=== PATIENT | male | born 1965 | race African-American/Black ===

== ENCOUNTER 2019-01-29 23:53 | Inpatient (IN) | payer OTHER ==
[~2019-01-29] VITALS: Ht 177.8 cm; Wt 112.5 kg
[2019-01-29 23:53] VITALS: BP 151/96
--- NOTE | 2019-01-29 23:53 | NUR ---
PT BROUGHT IN ALS TO ER BED 07.
--- NOTE | 2019-01-29 23:55 | NUR ---
BIBA from home with c/o mid abdominal pain x2 days, last bowel movement x2 days ago with distented abd and decrese in urine output. Denies dialysis. c/o SOB, uses home oxygen 3L at home. HX: COPD, DM, HTN, CHF, renal failure PT DENIES N/V/D; SKIN IS PINK/WARM/DRY; AAOX4 WITH EVEN AND STEADY GAIT; LUNGS CLEAR BL; PATIENT STATES PAIN OF 10/10 AT THIS TIME; PATIENT POSITIONED FOR COMFORT; HOB ELEVATED; BEDRAILS UP X2; BED DOWN. ER MD MADE AWARE OF PT STATUS.
[2019-01-30] MEDS ORDERED: ONDANSETRON 4 MG/2 ML VIAL IVP ONE (00:30)
[2019-01-30] MEDS ORDERED: MORPHINE SULFATE 4 MG/ML SYR IVP ONE ×2 (00:30→02:25)
--- NOTE | 2019-01-30 00:30 | NUR ---
PT'S GIRLFRIEND AT BEDSIDE
[2019-01-30 00:44] LABS: APPEARANCE,URINE CLEAR (CLEAR); BILIRUBIN,URINE NEGATIVE (NEGATIVE); BLOOD, URINE 1+ (NEGATIVE); COLOR,URINE YELLOW (YELLOW); LEUKOCYTE ESTERASE ,URINE NEGATIVE (NEGATIVE); NITRITE, URINE NEGATIVE (NEGATIVE); PH,URINE 6.5 (5.0-9.0); UGLUCOSE NEGATIVE (NEGATIVE)
[2019-01-30 00:50] LABS: BASOPHILS % (AUTO) 0.7 % (0.0-2.0); EOSINOPHILS # (AUTO) 0.2 K/uL (0-0.4); EOSINOPHILS % (AUTO) 3.1 % (0.0-4.0); HEMATOCRIT 41.4 % (36-52); HEMOGLOBIN 13.4 g/dL (12.0-18.0); LYMPHOCYTES # (AUTO) 0.6 K/uL (2.0-11.5); LYMPHOCYTES % (AUTO) 10.2 % (20.5-51.1); MEAN CORPUSCULAR HEMOGLOBIN 31 pg (27-31); MEAN CORPUSCULAR HGB CONC 32 g/dL (33-37); MEAN CORPUSCULAR VOLUME 94.3 fL (80-94); MONOCYTES # (AUTO) 0.9 K/uL (0.8-1.0); MONOCYTES % (AUTO) 15.4 % (1.7-9.3); NEUTROPHILS # (AUTO) 4.3 K/uL (1.8-7.7); NEUTROPHILS % (AUTO) 70.6 % (42.2-75.2); PLATELET COUNT (AUTO) 239 K/uL (140-450); RED CELL DISTRIBUTION WIDTH 15.2 % (11.6-13.7); WHITE BLOOD COUNT (AUTO) 6.1 K/uL (4.8-10.8)
--- NOTE | 2019-01-30 00:58 | NUR ---
PT TAKEN TO CT
[2019-01-30 01:01] LABS: ANION GAP 7.9 (8-16); CARBON DIOXIDE 34.4 mmol/L (21-32); CREATININE 1.6 mg/dL (0.7-1.3); POTASSIUM 3.3 mmol/L (3.5-5.1)
[2019-01-30 01:03] LABS: BARBITURATE, URINE NEG. ng/ml (NEG <=200); BENZODIAZEPINE, URINE NEG. ng/mL (NEG <=200); CANNABINOID, URINE NEG. ng/mL (NEG <=50); COCAINE, URINE NEG. ng/mL (NEG <=300); OPIATE, URINE NEG. ng/mL (NEG <=2000); PHENCYCLIDINE SCREEN,URINE NEG. ng/mL (NEG <=25)
[2019-01-30 01:06] LABS: WBC,URINE 0-5 /HPF (0-5)
[2019-01-30 01:07] LABS: TOTAL BILIRUBIN 0.6 mg/dL (0.0-1.0)
--- NOTE | 2019-01-30 01:18 | NUR ---
PT BACK FROM CT
--- NOTE | 2019-01-30 01:32 | NUR ---
PT LAYING IN BED SEMIFOWLER'S, PT'S GIRLFRIEND AT BEDSIDE. VS NOTED, SPO2 98% ON 3L O2 NC, RR 26 EVEN AND UNLABORED, ALL NEEDS MET AT THIS TIME.
[2019-01-30] MEDS ORDERED: NACL 0.9% 1,000 ML IV ONE (02:15)
--- NOTE | 2019-01-30 02:20 | NUR ---
DR GOMEZ AT BEDSIDE
[2019-01-30] MEDS ORDERED: ONDANSETRON 4 MG/2 ML VIAL IVP PRN (02:25)
[2019-01-30] MEDS ORDERED: ZOLPIDEM 5 MG TAB PO PRN (02:25)
[2019-01-30] MEDS ORDERED: APIX5TAB PO (02:26)
[2019-01-30] MEDS ORDERED: FURO-570 PO (02:26)
[2019-01-30] MEDS ORDERED: AMLO5TAB PO (02:26)
[2019-01-30] MEDS ORDERED: FERR325E14 PO (02:26)
[2019-01-30] MEDS ORDERED: MONT10TA35 PO (02:26)
[2019-01-30] MEDS ORDERED: FOLI1TAB90 PO (02:26)
[2019-01-30] MEDS ORDERED: ALBU0.0912 IH (02:26)
[2019-01-30] MEDS ORDERED: INSU100S22 SC (02:26)
[2019-01-30] MEDS ORDERED: METO25TA PO (02:26)
[2019-01-30] MEDS ORDERED: PANT40EC PO (02:26)
--- NOTE | 2019-01-30 02:40 | NUR ---
Patient will be admitted to care of DR. ELIZABETH. Admited to TELE. Will go to room 111B. Belongings list completed. Report to ALEX SANDERS AT BEDSIDE.
--- NOTE | 2019-01-30 02:45 | NUR ---
ADMITTED A 53 Y/O MALE WITH FROM [place] WITH CHIEF COMPLAINT OF ABDOMINAL PAIN VIA GURNEY. PATIENT ABLE TO TRANSFERRED TO BED STAND BY ASSIST.RESPIRATION EVEN AND UNLABORED. SKIN INTACT. NASAL SWAB DONE. EXPLAINED PLAN OF CARE. PERSONAL BELONGINGS AT BEDSIDE. ROUTINE ADMISSION CARE DONE AND CARRY OUT ORDERS. BED IN LOW LOCKED POSITION. CALL LIGHT WITHIN REACH. ALL NEEDS ATTENDED.
[2019-01-30] MEDS: DEXT 5% / NACL 0.45% 1,000 ML IV SCH ×2 (03:14→17:09)
[2019-01-30 03:22] LABS: CHOL/HDL RATIO 2.1 (1-4.5); THYROID STIMULATING HORMONE 1.49 uIU/mL (0.34-3.74)
[2019-01-30 04:00] VITALS: BP 127/72
--- NOTE | 2019-01-30 04:00 | NUR ---
SEEN PATIENT RESTING ON BED. DENIES PAIN AT THIS TIME. NO S/S OF DISTRESS NOTED. WILL CONTINUE TO MONITOR.
--- NOTE | 2019-01-30 04:30 | NUR ---
SEEN PATIENT RESTING. NO S/S OF DISTRESS NOTED. BED IN LOW LOCKED POSITION. WILL CONTINUE TO MONITOR.
[2019-01-30] MEDS ORDERED: POTASSIUM CHLORIDE 20 MEQ, LIDOCAINE MPF 1% - 5 mL VIAL 25 MG in NACL 0.9% 250 ML IV SCH ×2 (06:15→09:00)
[2019-01-30] MEDS: MORPHINE SULFATE 4 MG/ML SYR IVP PRN ×3 (06:38→18:51)
--- NOTE | 2019-01-30 07:15 | NUR ---
GAVE REPORT TO AM SHIFT RN AT BEDSIDE. CALL LIGHT WITHIN REACH. PATIENT IN STABLE CONDITION.
--- NOTE | 2019-01-30 07:16 | NUR ---
RECEIVED BEDSIDE REPORT FROM HEALTH AND SOCIAL CARE TEACHER NURSE. PATIENT IS AWAKE, ALERT AND ORIENTEDX4. NO SIGNS OF DISTRESS ON 2 1/2L NC. SKIN IS INTACT. IV ON L AC 20G INFUSING D5 1/2NS AT 80. CLEAN, DRY AND INTACT. PATIENT IS AMBULATORY, CONTINENT. URINAL AT BEDSIDE. WEB APPLICATIONS ARCHITECT AT BEDSIDE. PATIENT NPO D/T DX ACUTE PANCREATITIS. NO COMPLAINTS AT THIS TIME. BED IN LOW POSITION. CALL LIGHT WITHIN REACH. PATIENT ABLE TO MAKE NEEDS KNOWN. WILL CONTINUE TO MONITOR
[2019-01-30 08:00] VITALS: BP 112/76
--- NOTE | 2019-01-30 08:09 | NUR ---
PATIENT HAS BEEN SCREENED AND CATEGORIZED HIGH NUTRITION RISK. PATIENT WILL BE SEEN WITHIN 1-2 DAYS OF ADMISSION. 01/30/19-01/31/[address]
--- NOTE | 2019-01-30 09:00 | NUR ---
PATIENT IS WATCHING TV. NO SIGNS OF DISTRESS. WILL CONTINUE TO MONITOR THE PATIENT. CALL LIGHT WITHIN REACH
--- NOTE | 2019-01-30 10:13 | NUR ---
ADMINISTERED MEDS. PATIENT EDUCATED ON SIDE EFFECTS. PATIENT TOLERATED WELL. NO SIGNS OF DISTRESS ON 2 NC. PATIENT WATCHING TV. CALL LIGHT WITHIN REACH. PATIENT ABLE TO MAKE NEEDS KNOWN
[2019-01-30] MEDS ORDERED: LORazepam 2 MG/ML VIAL IVP PRN (11:20)
--- NOTE | 2019-01-30 11:32 | NUR ---
DR ELIZABETH SAID OK TO GIVE ICE CHIPS, ICE CHIPS GIVEN. PATIENT PLACED ON SEIZURE PRECAUTIONS D/T HX OF HEAVY DRINKING
[2019-01-30 11:41] LABS: BASOPHILS # (AUTO) 0.1 K/uL (0.00-0.22); BASOPHILS % (AUTO) 1.1 % (0.0-2.0); EOSINOPHILS # (AUTO) 0.2 K/uL (0-0.4); EOSINOPHILS % (AUTO) 3.7 % (0.0-4.0); HEMATOCRIT 40.4 % (36-52); LYMPHOCYTES # (AUTO) 0.7 K/uL (2.0-11.5); LYMPHOCYTES % (AUTO) 13.8 % (20.5-51.1); MEAN CORPUSCULAR HEMOGLOBIN 31 pg (27-31); MEAN CORPUSCULAR HGB CONC 32 g/dL (33-37); MEAN CORPUSCULAR VOLUME 94.8 fL (80-94); MONOCYTES # (AUTO) 0.9 K/uL (0.8-1.0); NEUTROPHILS # (AUTO) 3.2 K/uL (1.8-7.7); NEUTROPHILS % (AUTO) 63.4 % (42.2-75.2); PLATELET COUNT (AUTO) 228 K/uL (140-450); RED BLOOD CELL COUNT(AUTO) 4.26 MIL/uL (4.20-6.10); RED CELL DISTRIBUTION WIDTH 15.6 % (11.6-13.7); WHITE BLOOD COUNT (AUTO) 5.1 K/uL (4.8-10.8)
[2019-01-30 11:45] LABS: ANION GAP 8.4 (8-16); CARBON DIOXIDE 33.5 mmol/L (21-32); CREATININE 1.7 mg/dL (0.7-1.3); POTASSIUM 3.9 mmol/L (3.5-5.1)
[2019-01-30 11:51] LABS: ALBUMIN 2.7 g/dL (3.4-5.0); TOTAL BILIRUBIN 0.6 mg/dL (0.0-1.0)
[2019-01-30 12:00] VITALS: BP 123/80
--- NOTE | 2019-01-30 12:08 | NUR ---
ULTRASOUND TECHS AT BEDSIDE DOING US GALLBLADDER AND BLE.
--- NOTE | 2019-01-30 13:26 | NUR ---
01/30/19 RD INITIAL ASSESSMENT COMPLETED PLEASE REFER TO NUTRITION ASSESSMENT UNDER CARE ACTIVITY FOR ESTIMATED NUTRITIONAL NEEDS. 1. RECOMMEND RENAL DIET WHEN PATIENT IS MEDICALLY STABLE 2. EDUCATION ON HEALTHY EATING WAS PROVIDED 3. RD TO FOLLOW-UP 3-5 DAYS, MODERATE RISK RAÚL VELASCO, RD
--- NOTE | 2019-01-30 13:35 | NUR ---
PATIENT RESTING IN BED. NO DISTRESS. WILL CONTINUE TO MONITOR THE PATIENT
--- NOTE | 2019-01-30 13:55 | NUR ---
CM NOTE I SPOKE WITH SIVA OF [facility] # [phone] TO SET UP PATIENT'S OUTPATIENT FOLLOW UP APPOINTMENT. I INFORMED SIVA THAT THIS IS AN OUTPATIENT FOLLOW UP AFTER A HOSPITAL ADMISSION. PER SIVA, THE EARLIEST SCHEDULE FOR OUTPATIENT FOLLOW UP EVEN AFTER A HOSPITAL ADMISSION IS WITH DR. BERNA ENRIQUEZ (FROM THE SAME GROUP OF DOCTORS DR. SAHARA KHALIL) ON FEBRUARY 13, 2019 4:15 PM AT THE CLINIC AT [address] [place], [place] [id number]. I GAVE THE PATIENT HIS OUTPATIENT FOLLOW UP SCHEDULE.
--- NOTE | 2019-01-30 14:34 | NUR ---
PATIENT ASKING FOR A NAIL CLIPPER. TOLD HIM WE DONT HAVE ANY. PATIENT RELAXING IN BED. NO SIGNS OF DISTRESS. WILL CONTINUE TO MONITOR THE PATIENT. PATIENT ABLE TO VERBALIZE NEEDS
[2019-01-30 16:00] VITALS: BP 122/75
--- NOTE | 2019-01-30 16:00 | NUR ---
PATIENT RESTING. NO SIGNS OF DISTRESS. WILL CONTINUE TO MONITOR
--- NOTE | 2019-01-30 17:09 | NUR ---
PATIENT ASKING FOR URINAL. HANDED PATIENT URINAL. NO SIGNS OF DISTRESS. WILL CONTINUE TO MONITOR THE PATIENT
--- NOTE | 2019-01-30 18:55 | NUR ---
ADMINISTERED PRN PAIN MED. PATIENT EDUCATED ON SIDE EFFECTS. TOLERATED WELL. WILL CONTINUE TO MONITOR THE PATIENT
--- NOTE | 2019-01-30 19:31 | NUR ---
GAVE BEDSIDE REPORT TO SECTIONAL BELT MOLD ASSEMBLER NURSE. PATIENT ENDORSED IN STABLE CONDITION
--- NOTE | 2019-01-30 19:32 | NUR ---
RECEIVED PT FROM BLAIR RN KPT IS AAOX4 AMBULATORY IV ON LEFT AC INFUSING WELL DENIES ANY PAIN AT THIS TIME ON ICE CHIPS WELL TOLERATED INITIAL ASSESSMENT DONE
[2019-01-30 20:00] VITALS: BP 109/69
[2019-01-30] MEDS: METOPROLOL 25 MG TAB PO SCH (21:21)
--- NOTE | 2019-01-30 21:30 | NUR ---
PT VOIDING WELL NOT DISTRESS NOTED GETTING SLEEP ON 12 09 LTS VIA NC
[2019-01-31] VITALS: BP 113/76
--- NOTE | 2019-01-31 | NUR ---
PT REMAIN STABLE SLEEPING WELL NOT SIGNS OF PAIN NOTED
--- NOTE | 2019-01-31 01:15 | NUR ---
PT VOIDING WELL IV ;ON LEFT AC INFUSING WELL DENIES ANY PLAIN
[2019-01-31] MEDS: MORPHINE SULFATE 4 MG/ML SYR IVP PRN ×2 (02:05→08:15)
[2019-01-31] MEDS: DEXT 5% / NACL 0.45% 1,000 ML IV SCH (02:08)
--- NOTE | 2019-01-31 04:00 | NUR ---
SPONGE BATH GIVEN PT REMAIN STABLE DENIES ANY PAIN AT THIS TIME
[2019-01-31 06:00] VITALS: BP 123/75
--- NOTE | 2019-01-31 06:30 | NUR ---
PT VOIDING WELL DENIES ANY PAIN AT THIS TIME IV ON LEFT AC INFUSING WELL DENIES ANY PAIN AT THIS TIME PT WILL BE ENDORSED TO DAY SHIFT NURSE FOR CONTINUITY OF CARE
[2019-01-31 07:20] LABS: ALBUMIN 2.5 g/dL (3.4-5.0); ANION GAP 8.9 (8-16); CREATININE 1.6 mg/dL (0.7-1.3); POTASSIUM 3.9 mmol/L (3.5-5.1); TOTAL BILIRUBIN 0.5 mg/dL (0.0-1.0)
[2019-01-31 07:21] LABS: BASOPHILS # (AUTO) 0.1 K/uL (0.00-0.22); BASOPHILS % (AUTO) 1.2 % (0.0-2.0); EOSINOPHILS # (AUTO) 0.2 K/uL (0-0.4); EOSINOPHILS % (AUTO) 3.7 % (0.0-4.0); HEMATOCRIT 38.5 % (36-52); HEMOGLOBIN 12.6 g/dL (12.0-18.0); LYMPHOCYTES # (AUTO) 0.5 K/uL (2.0-11.5); LYMPHOCYTES % (AUTO) 10.9 % (20.5-51.1); MEAN CORPUSCULAR HEMOGLOBIN 32 pg (27-31); MEAN CORPUSCULAR HGB CONC 33 g/dL (33-37); MEAN CORPUSCULAR VOLUME 96.2 fL (80-94); MONOCYTES # (AUTO) 0.8 K/uL (0.8-1.0); MONOCYTES % (AUTO) 16.2 % (1.7-9.3); NEUTROPHILS # (AUTO) 3.3 K/uL (1.8-7.7); PLATELET COUNT (AUTO) 239 K/uL (140-450); RED CELL DISTRIBUTION WIDTH 15.2 % (11.6-13.7); WHITE BLOOD COUNT (AUTO) 4.8 K/uL (4.8-10.8)
--- NOTE | 2019-01-31 07:30 | NUR ---
RECEIVED BEDSIDE REPORT FROM PHARMACOLOGY ASSOCIATE NURSE. PT IS SLEEPING, ROUSED BY NAME, OX4. NO SIGNS OF DISTRESS ON 2.5 L NC. SKIN IS INTACT. IV CATH ON L AC 20G INFUSING D5 1/2NS AT 80ML/HR, IV SITE CLEAN, DRY AND INTACT. PT IS AMBULATORY, CONTINENT. URINAL AT BEDSIDE. BED IN LOWEST POSITION. CALL LIGHT WITHIN REACH. PATIENT ABLE TO MAKE NEEDS KNOWN. WILL CONTINUE TO MONITOR
[2019-01-31 08:00] VITALS: BP 124/79
[2019-01-31] MEDS: METOPROLOL 25 MG TAB PO SCH (08:15)
[2019-01-31] MEDS ORDERED: FOLIC ACID 1 MG TAB PO SCH (09:00)
[2019-01-31] MEDS ORDERED: NON-FORMULARY ITEM (Folic Acid 1 MG) PO SCH (09:00)
--- NOTE | 2019-01-31 11:30 | NUR ---
TURNED O2 TO 2L, PT TOLERATED WELL, O2 SATURATION 97%. HOWEVER, PT STATED HE USES 3L AT HOME. MADE PT AWARE 2L IS ENOUGH. MORE OXYGEN THAN NEEDED COULD BE TOXIC. PT VERBALIZED UNDERSTANDING.
[2019-01-31] MEDS: HYDROcodone/APAP 5/325 MG 1 TAB TAB PO PRN ×2 (12:58→18:23)
--- NOTE | 2019-01-31 13:43 | NUR ---
CM NOTE PER ASAF JOHNSON, THE PATIENT IS REQUESTING FOR TRANSPORTATION GOING HOME FROM [facility]. I CONFIRMED WITH THE PATIENT HIS HOME ADDRESS AND HE ALSO STATED THAT HE HAS O2 AT HOME, PORTABLE AND TANK. FAXED [facility] TRANSPORTATION REQUEST FORM TO [facility] PER SUDHIR OF [facility] TRANSPORTATION DEPT PH# [phone], THE PATIENT WILL BE PICKED UP BY [facility] TO GO HOME, FARM MANAGEMENT ADVISER TIME 1929 TODAY. ASAF JOHNSON AWARE.
--- NOTE | 2019-01-31 14:30 | NUR ---
CALLED [employer], MADE HER AWARE THAT PT REQUEST TRANSPORT VEHICLE. PT STATED HE ALWAYS GETS TRANSPORT VEHICLE TO GET HOME FROM THE HOSP. HE SAID HE HAS OXYGEN TANK AND OXYGEN CONCENTRATOR AT HOME. HE ALSO STATED HIS MOTHER IS WORKING WILL BE HOME BY 8PM.
--- NOTE | 2019-01-31 15:30 | NUR ---
MADE PT AWARE THAT TRANSPORT IS ARRANGED FOR TONIGHT FOR 7:30 PM. PT VERBALIZED UNDERSTANDING.
[2019-01-31] MEDS ORDERED: DIAZ5TAB7 PO (15:47)
[2019-01-31 16:00] VITALS: BP 134/93
--- NOTE | 2019-01-31 16:05 | NUR ---
PT ASKING FOR PAIN MEDS FOR ABD PAIN. MADE PT AWARE THAT DOCTOR DC'D MORPHINE, ONLY [facility] IS AVAILABLE AND IT'S DUE AROUND DINNER TIME. PT SAID HE IS COOL. PT ASKING FOR OXYGEN TANK SO HE CAN WALK TO THE RESTROOM. PROVIDED PT WITH PORTABLE OXYGEN TANK.
--- NOTE | 2019-01-31 16:30 | NUR ---
PT TOLERATED DIET, ADVANCED TO CARDIAC LOW SALT AND LOW FAT DIET. PT DENIES VOMITING. PT ALSO HAD BM TODAY. DENIES DIARRHEA.
--- NOTE | 2019-01-31 18:55 | NUR ---
EDUCATED PT ON DISEASE PROCESS, ABN S/SX, WHEN TO GO TO THE ER, EDUCATED ON THE IMPORTANCE TO FOLLOW UP WITH HIS PCP. EDUCATED ON MEDS AND HIS RX. IV REMOVED, TIP INTACT. PATIENT ALREADY DRESSED HIM SELF AND PACKED HIS BELONGINGS. Addendum: 01/31/19 at 1941 by Júnior Fortune RN RX PROVIDED. PT VERBALIZED UNDERSTANDING TO DISCHARGE INSTRUCTION AND MED TEACHING.
--- NOTE | 2019-01-31 19:20 | NUR ---
PT PICKED UP BY [facility]. O2 IN PLACE. NO S/S OF ACUTE DISTRESS.
--- NOTE | 2019-01-31 19:24 | NUR ---
PATIENT LEFT THE FACILITY IN WHEELCHAIR WITH 1 PERSONNEL FROM [place]. PATIENT CONDITION STABLE AT THIS TIME.
[2019-02-01] MEDS ORDERED: PANTOPRAZOLE 40 MG TABEC PO SCH (06:30)
[2019-02-01] MEDS ORDERED: MONTELUKAST SODIUM 10 MG TAB PO SCH (09:00)
== END 2019-01-31 19:05 | disposition home or self-care (01) | DRG 282 ==
LOC: MED 23:53 → MTU 01-30 02:28
PROVIDERS: ADMIT Hospitalist; ATTEND Hospitalist
DX: K85.20 Alcohol induced acute pancreatitis without necrosis or infection (principal); E11.22 Type 2 diabetes mellitus with diabetic chronic kidney disease; I50.30 Unspecified diastolic (congestive) heart failure; I13.0 Hypertensive heart and chronic kidney disease with heart failure and stage 1 through stage 4 chronic kidney disease, or unspecified chronic kidney disease; N18.3 Chronic kidney disease, stage 3 (moderate); E66.9 Obesity, unspecified; J44.9 Chronic obstructive pulmonary disease, unspecified; E87.6 Hypokalemia; E78.5 Hyperlipidemia, unspecified; Z68.35 Body mass index [BMI] 35.0-35.9, adult; Z86.718 Personal history of other venous thrombosis and embolism; Z79.01 Long term (current) use of anticoagulants; E44.1 Mild protein-calorie malnutrition
CPT/HCPCS: 36415; 71045; 76705; 80053; 80305; 81001; 83036; 83605; 83690; 83880; 84443; 84484; 85025; 86140; 87040; 87081; 87086; 93005; 93970; 99285; J1644; J2001; J2270; J2405; J3480; J7030; Q0092

== ENCOUNTER 2019-07-06 22:32 | Emergency (ER) | payer OTHER ==
[~2019-07-06] VITALS: Ht 177.8 cm; Wt 108.9 kg
[~2019-07-06 22:32] MED LIST: ALBU0.0912 IH; AMLO5TAB PO; APIX5TAB PO; DIAZ5TAB7 PO; FOLI1TAB90 PO; METO25TA PO; MONT10TA35 PO; PANT40EC PO
[2019-07-06 22:36] VITALS: BP 150/89
--- NOTE | 2019-07-06 22:46 | NUR ---
PT TRIAGED, SENT BACK IN LOBBY AWAITING FOR BED AT THIS TIME.
[2019-07-06] MEDS ORDERED: FURO-570 PO (23:46)
[2019-07-06] MEDS ORDERED: BECL10.62 IH (23:51)
[2019-07-07 00:19] LABS: HEMATOCRIT 39.4 % (36-52); HEMOGLOBIN 13.1 g/dL (12.0-18.0); MEAN CORPUSCULAR HEMOGLOBIN 30 pg (27-31); MEAN CORPUSCULAR HGB CONC 33 g/dL (33-37); MEAN CORPUSCULAR VOLUME 89.3 fL (80-94); PLATELET COUNT (AUTO) 355 K/uL (140-450); RED BLOOD CELL COUNT(AUTO) 4.41 MIL/uL (4.20-6.10); RED CELL DISTRIBUTION WIDTH 14.9 % (11.6-13.7); WHITE BLOOD COUNT (AUTO) 10.6 K/uL (4.8-10.8)
[2019-07-07 00:41] LABS: ANION GAP 11.7 (8-16); CREATININE 2.2 mg/dL (0.7-1.3); POTASSIUM 4.7 mmol/L (3.5-5.1)
[2019-07-07 00:53] LABS: TOTAL BILIRUBIN 0.4 mg/dL (0.0-1.0)
[2019-07-07 00:55] LABS: EOSINOPHILS % (MANUAL) 4 % (0-4); LYMPHOCYTES % (MANUAL) 10 % (20-46); MONOCYTES % (MANUAL) 12 % (5-12)
[2019-07-07] MEDS ORDERED: MORPHINE SULFATE 4 MG/ML SYR IVP ONE (00:55)
[2019-07-07] MEDS ORDERED: hydrALAZINE 20 MG/ML VIAL IVP ONE (00:55)
--- NOTE | 2019-07-07 01:00 | NUR ---
PT BIB W/C TO ED BED 12
[2019-07-07] MEDS ORDERED: NACL 0.9% 1,000 ML IV ONE (01:10)
--- NOTE | 2019-07-07 01:15 | NUR ---
PT BIBA TO ED FOR EVALUATION OF PRODUCTIVE COUGH X 3 DAYS. PT AAO X4, GCS 15, ABLE TO SPEAK WITH FULL COMPLETE SENTENCES. ABLET O AMBULATED FROM W/C TO BED. RESPIATIONS TACHYPNIC RR 20'S, BL LUNG CRACKLES. ON O2 3L/M VIA NC, O2 SAT WNL. SKIN WARM AND DRY, COLOR APPROPIATE FOR RACE. ABDOMEN LARGE, NON DISTENDED, ACTIVE BOWEL SOUND X4. CARDIC MONITOR ST HR 100'S, BP WNL. STATED RT CHEST PAIN 06/16. MADE AWARE OF PT STATUS. WILL CONTINUE TO MONITOR
--- NOTE | 2019-07-07 01:30 | NUR ---
CONFIRM NS 1 LITER IVF BOLUS, OK TO GIVE AT THIS TIME.
[2019-07-07] MEDS ORDERED: LEVOFLOXACIN 750 MG TAB PO ONE (02:10)
[2019-07-07] MEDS ORDERED: predniSONE 20 MG TAB PO ONE (02:10)
--- NOTE | 2019-07-07 03:38 | NUR ---
PT REMAINS GCS 15, RESPIRATIONS EVEN AND UNLABORED. VSS, NO ACUTE DISTRESS AT THIS TIME. WILL CONTINUE TO MONITOR. PT PENDING D/C, AWAITING FOR TRANSPORTATION
--- NOTE | 2019-07-07 05:06 | NUR ---
ETA FOR TRANSPORT BACK TO HOME IS 0800. ER MD MADE AWARE OF STATUS. [facility]
--- NOTE | 2019-07-07 06:21 | NUR ---
Patient discharged with v/s stable. Written and verbal after care instructions given and explained. Patient alert, oriented and verbalized understanding of instructions. Ambulance Transport with to home. All questions addressed prior to discharge. ID band removed. Patient advised to follow up with PMD. Rx of LEVAQUIN 750 MG, PRENISONE 20 MG, ALBUTEROL 90 MCG/ACTUATION given. Patient educated on indication of medication including possible reaction and side effects. Opportunity to ask questions provided and answered.
[2019-07-07 06:23] VITALS: BP 136/73
== END 2019-07-07 06:21 | disposition home or self-care (01) ==
LOC: MED 22:32
DX: J44.1 Chronic obstructive pulmonary disease with (acute) exacerbation (principal); E87.1 Hypo-osmolality and hyponatremia; I13.0 Hypertensive heart and chronic kidney disease with heart failure and stage 1 through stage 4 chronic kidney disease, or unspecified chronic kidney disease; N18.9 Chronic kidney disease, unspecified; I50.9 Heart failure, unspecified; Z87.448 Personal history of other diseases of urinary system; Z79.899 Other long term (current) drug therapy
CPT/HCPCS: 36415; 71046; 71250; 80053; 83605; 83880; 85025; 96374; 99284; J2270; J7512; J0360